=== PATIENT | male | born 1995 | race African-American/Black ===

== ENCOUNTER 2022-09-29 20:22 | Emergency (ER) | payer BC ==
[~2022-09-29] VITALS: Ht 177.8 cm; Wt 95.5 kg
[2022-09-30 04:09] VITALS: BP 140/84; TEMP 98.5; O2SAT 100
== END 2022-09-30 06:09 | disposition left against medical advice (07) ==
LOC: M ED 20:22
DX: Z53.21 Procedure and treatment not carried out due to patient leaving prior to being seen by health care provider (principal)